=== PATIENT | male | born 1995 | race Two or more races ===

== ENCOUNTER 2024-11-25 16:10 | Emergency (ER) | payer BC, OTHER ==
[~2024-11-25] VITALS: Ht 185.4 cm; Wt 114.8 kg
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
[2024-11-25] MEDS: KETOROLAC TROMETH 60MG/2ML VIAL IM ONE (17:01)
[2024-11-25] MEDS ORDERED: IBUP-1456 PO (17:13)
[2024-11-25 17:20] VITALS: BP 126/72; PULSE 87; RESP 18; TEMP 98.7; O2SAT 95
== END 2024-11-25 17:21 | disposition home or self-care (01) ==
LOC: ER 16:10
DX: S83.8X1A Sprain of other specified parts of right knee, initial encounter (principal); W01.0XXA Fall on same level from slipping, tripping and stumbling without subsequent striking against object, initial encounter; Y93.55 Activity, bike riding; Y92.488 Other paved roadways as the place of occurrence of the external cause; Y99.8 Other external cause status
CPT/HCPCS: 73562; 96372; 99283; J1885